=== PATIENT | male | born 1995 | race Two or more races ===

== ENCOUNTER 2017-05-17 10:49 | Emergency (ER) | payer SELFPAY ==
[~2017-05-17] VITALS: Ht 182.9 cm; Wt 101.2 kg
[2017-05-17 11:00] VITALS: BP 130/80
== END 2017-05-17 11:41 | disposition home or self-care (01) ==
LOC: ED 11:24
DX: L03.113 Cellulitis of right upper limb (principal)
CPT/HCPCS: 99283